=== PATIENT | female | born 1990 ===

== ENCOUNTER 2022-05-05 16:22 | Emergency (ER) | payer OTHER ==
[2022-05-05 16:36] VITALS: BP 150/90
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
== END 2022-05-05 19:45 | disposition left against medical advice (07) ==
LOC: ED 16:22
DX: Z04.1 Encounter for examination and observation following transport accident (principal); Z53.21 Procedure and treatment not carried out due to patient leaving prior to being seen by health care provider; V89.2XXA Person injured in unspecified motor-vehicle accident, traffic, initial encounter; Y93.89 Activity, other specified; Y92.89 Other specified places as the place of occurrence of the external cause; Y99.8 Other external cause status